=== PATIENT | female | born 1960 | race Caucasian/White ===

== ENCOUNTER 2020-12-18 11:01 | Inpatient (IN) | payer OTHER ==
[2020-12-19] MEDS ORDERED: Morphine 2 MG/ML VIAL SLOW IVP PRN (00:04)
[2020-12-19] MEDS ORDERED: Sodium Chloride 0.9% 500 ML IV SCH (00:15)
[2020-12-19] MEDS ORDERED: Norepinephrine 8 MG/0.9% NS 250 ML IVPB SCH (00:15)
[2020-12-19 01:10] VITALS: BMI 38.2
[2020-12-19 01:29] LABS: CKMB 138.9 ng/mL (0-6.6); Troponin I 27.367 ng/mL (< 0.028)
[2020-12-19] MEDS: Acetaminophen/Codeine 30-300mg Tablet PO PRN ×5 (02:14→20:49)
[2020-12-19 04:02] LABS: #Basophils 0.1 thou/uL (0.0-0.2); #Eosinphils 0.1 thou/uL (0.0-0.7); #Lymphocytes 1.8 thou/uL (1.20-3.40); #Monocytes 0.4 thou/uL (0.11-0.59); #Neutrophils 9.8 thou/uL (1.40-6.50); %Basophils 0.5 % (0.0-1.0); %Eosinophils 0.9 % (0.0-10.0); %Monocytes 2.9 % (0.0-10.0); %Neutrophils 80.7 % (42.0-75.0); Mean Corpuscular HGB CONC 34.4 g/dL (32.0-36.0); Mean Corpuscular Hemoglobin 30.6 pg (27.0-31.0); Platelet Count 289 thou/uL (130-400); RBC Distribution Width 14.2 % (11.5-14.5); Red Blood Cell (RBC) Count 4.25 mill/uL (4.20-5.40); White Blood Cell (WBC) Count 12.1 thou/uL (4.8-10.8)
[2020-12-19 04:11] LABS: Anion Gap 11 mmol/L (10-20); BUN (Urea Nitrogen) 12 mg/dL (9.8-20.1); Calc. Creatinine Clearance 143 mL/min (70-130); Calcium 8.8 mg/dL (7.8-10.44); Carbon Dioxide 25 mmol/L (23-31); Cardiac Risk 4.1 (Less than 4.5); Chloride 105 mmol/L (98-107); Cholesterol 192 mg/dl (< 200 Desired); Glucose 107 mg/dL (80-115); HDL Cholesterol 47 mg/dL (>60 Neg Risk); LDL Cholesterol, Calculated 122 mg/dL; Potassium 4.5 mmol/L (3.5-5.1); Sodium 136 mmol/L (136-145); Triglycerides 116 mg/dL (Less than 150)
[2020-12-19 04:32] LABS: Free T4 (Free Thyroxine) 0.83 ng/dL (0.70-1.48); Thyroid Stimulating Hormone 1.1542 uIU/mL (0.35-4.94)
[2020-12-19] MEDS: traMADol HCl 50 MG TAB PO PRN ×3 (06:05→18:40)
[2020-12-19 07:36] LABS: CKMB 273.3 ng/mL (0-6.6)
[2020-12-19] MEDS: Aspirin Chewable 81 MG TAB PO SCH (08:59)
[2020-12-19] MEDS: TICAGRELOR 90 MG TABLET PO SCH ×2 (08:59→19:53)
[2020-12-19] MEDS ORDERED: Enoxaparin Sodium 40 MG/0.4 ML SYRINGE SC SCH (09:00)
[2020-12-19] MEDS: Ondansetron PF 4 MG/2 ML Vial IVP PRN ×3 (12:32→20:50)
[2020-12-19 12:50] LABS: SARS-CoV-2 PCR by NAA Not Detected (NotDetected)
[2020-12-19] MEDS ORDERED: Lorazepam 1 MG TAB PO SCH (13:45)
[2020-12-19] MEDS: Lorazepam 1 MG TAB PO SCH (13:48)
[2020-12-19] MEDS ORDERED: Atorvastatin Calcium 40 MG TAB PO SCH (21:00)
[2020-12-20] MEDS: traMADol HCl 50 MG TAB PO PRN ×4 (01:03→22:09)
[2020-12-20] MEDS: Ondansetron PF 4 MG/2 ML Vial IVP PRN ×5 (01:04→18:44)
[2020-12-20] MEDS: Acetaminophen/Codeine 30-300mg Tablet PO PRN ×5 (01:51→20:55)
[2020-12-20 03:36] LABS: #Eosinphils 0.1 thou/uL (0.0-0.7); #Lymphocytes 1.7 thou/uL (1.20-3.40); #Monocytes 0.6 thou/uL (0.11-0.59); #Neutrophils 8.7 thou/uL (1.40-6.50); %Basophils 0.1 % (0.0-1.0); %Eosinophils 0.6 % (0.0-10.0); %Lymphocytes 15.6 % (21.0-51.0); %Monocytes 5.5 % (0.0-10.0); %Neutrophils 78.1 % (42.0-75.0); Hemoglobin 12.3 g/dL (12.0-16.0); Mean Corpuscular HGB CONC 35.3 g/dL (32.0-36.0); Mean Corpuscular Hemoglobin 31.1 pg (27.0-31.0); Mean Corpuscular Volume 88.1 fL (78.0-98.0); Mean Platelet Volume 6.8 fL (7.4-10.4); Platelet Count 262 thou/uL (130-400); RBC Distribution Width 13.8 % (11.5-14.5); Red Blood Cell (RBC) Count 3.94 mill/uL (4.20-5.40); White Blood Cell (WBC) Count 11.1 thou/uL (4.8-10.8)
[2020-12-20 03:57] LABS: Anion Gap 10 mmol/L (10-20); BUN (Urea Nitrogen) 6 mg/dL (9.8-20.1); Calc. Creatinine Clearance 179 mL/min (70-130); Calcium 8.7 mg/dL (7.8-10.44); Carbon Dioxide 24 mmol/L (23-31); Chloride 99 mmol/L (98-107); Glucose 104 mg/dL (80-115); Potassium 3.4 mmol/L (3.5-5.1); Sodium 130 mmol/L (136-145)
[2020-12-20] MEDS: Lorazepam 1 MG TAB PO SCH (08:01)
[2020-12-20] MEDS: TICAGRELOR 90 MG TABLET PO SCH ×2 (08:01→20:56)
[2020-12-20] MEDS: Aspirin Chewable 81 MG TAB PO SCH (08:01)
[2020-12-20] MEDS ORDERED: Ezetimibe 10 MG TAB PO SCH (09:00)
[2020-12-21] MEDS: Ondansetron PF 4 MG/2 ML Vial IVP PRN ×4 (00:14→18:10)
[2020-12-21] MEDS: Acetaminophen/Codeine 30-300mg Tablet PO PRN ×2 (02:03→08:12)
[2020-12-21] MEDS: traMADol HCl 50 MG TAB PO PRN ×2 (04:40→10:56)
[2020-12-21 05:07] LABS: #Eosinphils 0.1 thou/uL (0.0-0.7); #Lymphocytes 1.9 thou/uL (1.20-3.40); #Monocytes 0.7 thou/uL (0.11-0.59); #Neutrophils 7.1 thou/uL (1.40-6.50); %Basophils 0.4 % (0.0-1.0); %Eosinophils 1.1 % (0.0-10.0); %Lymphocytes 19.1 % (21.0-51.0); %Monocytes 6.8 % (0.0-10.0); %Neutrophils 72.6 % (42.0-75.0); Hemoglobin 12.3 g/dL (12.0-16.0); Mean Corpuscular HGB CONC 35.1 g/dL (32.0-36.0); Mean Corpuscular Hemoglobin 30.6 pg (27.0-31.0); Mean Corpuscular Volume 87.2 fL (78.0-98.0); Mean Platelet Volume 6.8 fL (7.4-10.4); Platelet Count 267 thou/uL (130-400); RBC Distribution Width 13.7 % (11.5-14.5); Red Blood Cell (RBC) Count 4.01 mill/uL (4.20-5.40); White Blood Cell (WBC) Count 9.8 thou/uL (4.8-10.8)
[2020-12-21 05:36] LABS: Anion Gap 13 mmol/L (10-20); BUN (Urea Nitrogen) 7 mg/dL (9.8-20.1); Calc. Creatinine Clearance 154 mL/min (70-130); Calcium 9.3 mg/dL (7.8-10.44); Carbon Dioxide 25 mmol/L (23-31); Chloride 100 mmol/L (98-107); Glucose 96 mg/dL (80-115); Potassium 3.2 mmol/L (3.5-5.1); Sodium 135 mmol/L (136-145)
[2020-12-21] MEDS: Aspirin Chewable 81 MG TAB PO SCH (08:11)
[2020-12-21] MEDS: Lorazepam 1 MG TAB PO SCH (08:11)
[2020-12-21] MEDS: TICAGRELOR 90 MG TABLET PO SCH ×2 (08:13→21:05)
[2020-12-21] MEDS: Morphine ER 15 MG TAB PO SCH ×3 (13:01→22:22)
[2020-12-21] MEDS ORDERED: Atorvastatin Calcium 20 MG TAB PO SCH (21:00)
[2020-12-22] MEDS: Acetaminophen/Codeine 30-300mg Tablet PO PRN (04:43)
[2020-12-22 04:58] LABS: #Eosinphils 0.3 thou/uL (0.0-0.7); #Lymphocytes 2.2 thou/uL (1.20-3.40); #Monocytes 0.9 thou/uL (0.11-0.59); #Neutrophils 7.3 thou/uL (1.40-6.50); %Basophils 0.1 % (0.0-1.0); %Eosinophils 2.6 % (0.0-10.0); %Monocytes 8.5 % (0.0-10.0); %Neutrophils 67.8 % (42.0-75.0); Hemoglobin 11.8 g/dL (12.0-16.0); Mean Corpuscular HGB CONC 32.7 g/dL (32.0-36.0); Mean Corpuscular Hemoglobin 28.7 pg (27.0-31.0); Mean Corpuscular Volume 87.8 fL (78.0-98.0); Mean Platelet Volume 6.7 fL (7.4-10.4); Platelet Count 265 thou/uL (130-400); RBC Distribution Width 13.8 % (11.5-14.5); Red Blood Cell (RBC) Count 4.11 mill/uL (4.20-5.40); White Blood Cell (WBC) Count 10.7 thou/uL (4.8-10.8)
[2020-12-22 05:16] LABS: Anion Gap 10 mmol/L (10-20); BUN (Urea Nitrogen) 8 mg/dL (9.8-20.1); Calc. Creatinine Clearance 152 mL/min (70-130); Carbon Dioxide 26 mmol/L (23-31); Chloride 103 mmol/L (98-107); Glucose 88 mg/dL (80-115); Potassium 3.1 mmol/L (3.5-5.1); Sodium 136 mmol/L (136-145)
[2020-12-22] MEDS: Morphine ER 15 MG TAB PO SCH ×2 (09:06→13:13)
[2020-12-22] MEDS: Aspirin Chewable 81 MG TAB PO SCH (09:07)
[2020-12-22] MEDS: TICAGRELOR 90 MG TABLET PO SCH (09:07)
[2020-12-22] MEDS: Lorazepam 1 MG TAB PO SCH (09:07)
[2020-12-22 11:33] VITALS: BP 120/57; TEMP 98.2
[2020-12-23] MEDS ORDERED: Ezetimibe 10 MG TAB PO SCH (09:00)
== END 2020-12-22 15:09 | disposition home or self-care (01) | DRG 249 ==
LOC: CCU 11:01 → 2SE 12-20 13:25
PROVIDERS: ADMIT Emergency Medicine; ATTEND Emergency Medicine
PROC: 02703EZ Dilation of Coronary Artery, One Artery with Two Intraluminal Devices, Percutaneous Approach (ICD-10-PCS; principal; 2020-12-18)
PROC: 4A023N7 Measurement of Cardiac Sampling and Pressure, Left Heart, Percutaneous Approach (ICD-10-PCS; 2020-12-18)
PROC: B2111ZZ Fluoroscopy of Multiple Coronary Arteries using Low Osmolar Contrast (ICD-10-PCS; 2020-12-18)
DX: I21.19 ST elevation (STEMI) myocardial infarction involving other coronary artery of inferior wall (principal); I47.2 Ventricular tachycardia; M54.9 Dorsalgia, unspecified; I95.9 Hypotension, unspecified; M79.81 Nontraumatic hematoma of soft tissue; G89.29 Other chronic pain; Z88.0 Allergy status to penicillin; Z88.2 Allergy status to sulfonamides; Z88.8 Allergy status to other drugs, medicaments and biological substances
CPT/HCPCS: 36415; 76942; 80048; 80061; 83880; 84439; 84443; 84484; 85025; 85347; 92928; 93005; 93010; 93306; 93458; 93798; 97139; 99152; 99153; C1769; C1876; J0461; J1644; J1650; J2250; J2405; J2550; U0003; U0005

== ENCOUNTER 2021-03-19 10:26 | Emergency (ER) | payer OTHER ==
[2021-03-19 10:48] LABS: #Eosinphils 0.1 thou/uL (0.0-0.7); #Lymphocytes 1.6 thou/uL (1.20-3.40); #Monocytes 0.5 thou/uL (0.11-0.59); %Basophils 0.1 % (0.0-1.0); %Eosinophils 0.6 % (0.0-10.0); %Lymphocytes 15.5 % (21.0-51.0); %Monocytes 4.5 % (0.0-10.0); %Neutrophils 79.2 % (42.0-75.0); Hemoglobin 15.1 g/dL (12.0-16.0); Mean Corpuscular HGB CONC 33.7 g/dL (32.0-36.0); Mean Corpuscular Hemoglobin 29.7 pg (27.0-31.0); Mean Platelet Volume 6.4 fL (7.4-10.4); Platelet Count 329 thou/uL (130-400); RBC Distribution Width 14.5 % (11.5-14.5); Red Blood Cell (RBC) Count 5.07 mill/uL (4.20-5.40); White Blood Cell (WBC) Count 10.1 thou/uL (4.8-10.8)
[2021-03-19 11:09] LABS: ALT (SGPT) 20 U/L (8-55); AST (SGOT) 17 U/L (5-34); Albumin 4.2 g/dL (3.4-4.8); Alkaline Phosphatase 125 U/L (40-110); Anion Gap 11 mmol/L (10-20); BUN (Urea Nitrogen) 8 mg/dL (9.8-20.1); Bilirubin, Total 0.3 mg/dL (0.2-1.2); Calc. Creatinine Clearance 0 mL/min (70-130); Calcium 9.8 mg/dL (7.8-10.44); Carbon Dioxide 27 mmol/L (23-31); Chloride 102 mmol/L (98-107); Globulin 3.1 g/dL (2.4-3.5); Glucose 101 mg/dL (80-115); Potassium 4.4 mmol/L (3.5-5.1); Protein, Total 7.3 g/dL (5.8-8.1); Sodium 136 mmol/L (136-145)
[2021-03-19 12:15] LABS: Prothrombin Time 13.2 sec (12.0-14.7)
[2021-03-19 12:16] LABS: PTT 33.4 sec (22.9-36.1)
[2021-03-19] MEDS ORDERED: Pantoprazole 80 MG, Admixture Fee 1 EACH in Sodium Chloride 0.9% 100 ML IVPB SCH (12:45)
[2021-03-19] MEDS ORDERED: Dicyclomine 20 MG TAB ONE (13:14)
== END 2021-03-19 15:01 | disposition home or self-care (01) ==
LOC: ERS 10:26
DX: K52.9 Noninfective gastroenteritis and colitis, unspecified (principal); K92.2 Gastrointestinal hemorrhage, unspecified; F17.210 Nicotine dependence, cigarettes, uncomplicated
CPT/HCPCS: 36415; 74177; 80053; 82274; 83605; 83690; 85025; 85610; 85730; 86850; 86900; 86901; 96365

== ENCOUNTER 2021-05-21 10:43 | Outpatient (CLI) | payer OTHER ==
[2021-05-21 19:21] LABS: SARS-CoV-2 PCR by NAA Not Detected (NotDetected)
== END 2021-05-21 10:44 | disposition home or self-care (01) ==
LOC: LABBT 10:43
PROVIDERS: ATTEND Internal Medicine Gastroenterology
DX: Z01.812 Encounter for preprocedural laboratory examination (principal); K62.5 Hemorrhage of anus and rectum; R10.9 Unspecified abdominal pain; K21.9 Gastro-esophageal reflux disease without esophagitis; Z20.822 Contact with and (suspected) exposure to COVID-19
CPT/HCPCS: U0003; U0005

== ENCOUNTER 2021-05-26 06:26 | Day surgery (SDC) | payer OTHER ==
[2021-05-15 14:09] VITALS: BMI 36.6
[2021-05-26] MEDS ORDERED: PHENYLEPHRINE-NS 100 MCG/ML 10 ML SYRINGE ONE ×2 (08:32→09:30)
[2021-05-26] MEDS ORDERED: Lidocaine 1% PF 5 ML VIAL ONE (08:32)
[2021-05-26] MEDS ORDERED: PROPOFOL 200 MG/20 ML VIAL ONE (08:32)
== END 2021-05-26 10:38 | disposition home or self-care (01) ==
LOC: SDC 06:26
PROVIDERS: ATTEND Internal Medicine Gastroenterology
PROC: 0DBL8ZX Excision of Transverse Colon, Via Natural or Artificial Opening Endoscopic, Diagnostic (ICD-10-PCS; principal; 2021-05-26)
PROC: 3E0H8KZ Introduction of Other Diagnostic Substance into Lower GI, Via Natural or Artificial Opening Endoscopic (ICD-10-PCS; principal; 2021-05-26)
PROC: 0DB38ZX Excision of Lower Esophagus, Via Natural or Artificial Opening Endoscopic, Diagnostic (ICD-10-PCS; principal; 2021-05-26)
DX: K51.411 Inflammatory polyps of colon with rectal bleeding (principal); K58.9 Irritable bowel syndrome, unspecified; K64.8 Other hemorrhoids; K21.9 Gastro-esophageal reflux disease without esophagitis; F17.200 Nicotine dependence, unspecified, uncomplicated; I25.10 Atherosclerotic heart disease of native coronary artery without angina pectoris; G89.29 Other chronic pain; M54.9 Dorsalgia, unspecified; I10 Essential (primary) hypertension; G43.909 Migraine, unspecified, not intractable, without status migrainosus; Z68.36 Body mass index [BMI] 36.0-36.9, adult; E66.9 Obesity, unspecified; Z79.82 Long term (current) use of aspirin; Z79.891 Long term (current) use of opiate analgesic; Z88.0 Allergy status to penicillin; Z88.2 Allergy status to sulfonamides; Z88.8 Allergy status to other drugs, medicaments and biological substances; Z79.899 Other long term (current) drug therapy; Z95.5 Presence of coronary angioplasty implant and graft
CPT/HCPCS: 88305; 88312; 88313; J2704